=== PATIENT | female | born 1955 | race Caucasian/White ===

== ENCOUNTER → 2016-12-17 | Outpatient (CLI) | payer OTHER ==
[~2016-12-17] MED LIST: ASPIRIN EC81 M1 PO; CRESTOR5 MG PO; FERROUS SULFATE PO; HUMALOG MIX 75/23 ML SUBQ; LANTUS; LISINOPRIL10 MG PO; LOVAZA1 G PO; METOPROLOL SUC100 MG PO; OCUVITE ADULT1 EACH PO; TRICOR PO; VITAMIN C500 M1 PO; VITAMIN D PO; [UNRECOGNIZED DRUG - OTHER] PO
--- NOTE | ~2016-12-17 | MY29 ---
[facility] A Service of [facility] RADIOLOGY TEXT RESULTS PATIENT: JOSE GUERRA LOCATION: [facility] : 51 UNIT #: [id number] AGE: [address]: Alan Hughes MD SEX: F ORDER DR: [id number] [facility] [address] [place], [place] [address] [id number] O MR#: [id number] Acc #: [id number] NAME: JOSE GUERRA : 1955 SEX: F STUDY DATE/TIME: 12/17/2016 9:02 UNIT: [facility] ROOM: STUDY DESCRIPTION: MY JACKLYN SCREENING W/ CAD BILAT Attending Physician: Alan Hughes M.D. Referring Physician: Alan Hughes M.D. Ordering Physician: Alan Hughes M.D. Primary Care Physician: Alan Hughes M.D. MEDICAL IMAGING REPORT This report is preliminary unless electronic signature is present EXAM Digital screening mammograms, 12/17/2016, [facility]. HISTORY 61-year-old woman, no risk elevation. Annual screen. COMPARISON Mammograms date to 04/10/2006 with most recent 05/06/2014. FINDINGS Digital imaging of each breast was completed utilizing screening protocol. Review includes FDA-approved CAD device. Breast parenchyma is heterogeneously dense with scattered parenchymal opacities in each breast. A well-circumscribed slightly lobulated nodule is noted anterior third central subareolar location. 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 Occasional benign calcification noted in the right breast. I see no suspicious mass. There are no interval occurring microcalcifications and no suspicious architectural deformity. IMPRESSION Stable benign mammogram. Annual screening recommended. Patients over the age of 40 are entered into a reminder system with target due date for the next mammogram. A result letter will also be sent to the patient. BIRADS: 2 Benign finding. Dictated by... Julian Israel M.D. THIS IS AN ELECTRONICALLY VERIFIED REPORT Julian Israel M.D. at 12/17/2016 2:44 PM [facility] A Service of [facility] RADIOLOGY TEXT RESULTS PATIENT: JOSE GUERRA LOCATION: [facility] : 51 UNIT #: [id number] AGE: [address]: Alan Hughes MD SEX: F ORDER DR: Elsy TD: 12/17/2016 12:27 JOB #: [id number] MEDICAL IMAGING REPORT Page 1 of 1 COPY
== END | disposition home or self-care (01) ==
LOC: CWCC 08:30
DX: Z12.31 Encounter for screening mammogram for malignant neoplasm of breast (principal)
CPT/HCPCS: G0202